=== PATIENT | female | born 1965 | race American Indian/Alaskan Native ===

== ENCOUNTER 2018-02-08 10:27 | Day surgery (SDC) | payer OTHER ==
[2018-02-08] MEDS ORDERED: NACL 0.9% 1000 ML 1,000 ML IV SCH (12:00)
[2018-02-08] MEDS ORDERED: DIPRIVAN 10 MG/ML IV ONE ×2 (14:09)
--- NOTE | 2018-02-08 14:12 | Anesthesia Consultation ---
Anesthesia Consult and Med Hx Date of service: 02/08/18 - Airway Anesthetic Teeth Evaluation: Good ROM Head & Neck: Adequate Mental/Hyoid Distance: Adequate Mallampati Class: Class II Intubation Access Assessment: Probably Good - Pulmonary Exam CTA: Yes - Cardiac Exam Cardiac Exam: RRR - Pre-Operative Health Status ASA Pre-Surgery Classification: ASA3 Proposed Anesthetic Plan: MAC - Pulmonary Hx Smoking: Yes Hx Asthma: Yes (OCCASIONALLY USES AN INHALER) Hx Sleep Apnea: No - Cardiovascular System Hx Hypertension: No Hx Heart Attack/AMI: No Hx Heart Murmur: No - Central Nervous System Hx Psychiatric Problems: No - Endocrine Hx Renal Disease: No - Hematic Hx Sickle Cell Disease: No - Other Systems Hx Alcohol Use: No Hx Substance Use: No Hx Cancer: No
--- NOTE | 2018-02-08 14:12 | Anesthesia Day of Surgery ---
Anesthesia Day of Surgery - Day of Surgery Patient Examined: Yes Patient H&P Reviewed: Yes Patient is NPO: Yes
--- NOTE | 2018-02-08 15:12 | Operative Report ---
Operative Report Operative Report: Date of procedure: 02/08/2018 Procedure: Colonoscopy with Multiple Hot Biopsy Polypectomies. Attending physician: Sanchez Thakkar MD Office Machine Servicer: Sanchez Thakkar MD Indication: Patient is a 52-year-old female who presents for screening colonoscopy. This colonoscopy serves to evaluate patient so that treatment may be directed based on the findings. Consent: Informed consent was obtained after advising the patient and family regarding nature of this procedure, its indications, potential benefits as well as possible complications including but not limited to bleeding perforation and adverse reaction to medication, infection as well as other cardiopulmonary complications. An informed written and verbal consent was then obtained after due opportunity was provided for questions and answers. Monitoring: Patient was monitored continuously with pulse oximetry and electrocardiographic recordings as well as blood pressure recordings. Vital signs remained stable throughout this procedure with no untoward events. Preoperative assessment: Patient was assessed immediately prior to this procedure for capacity to tolerate monitored anesthesia care and moderate sedation as well as general anesthesia. Patient's ASA classification is 2, Mallampati class is 2, Hyomental distance is 3. Instrument: T[employer]ent[employer] video colonoscope Medications: Propofol given intravenously in divided doses. For details please refer to anesthesia records. Description of procedure: Patient was placed in the left lateral decubitus position after achieving sedation, a digital rectal examination was performed following which the colonoscope was introduced into the anal verge and advanced to the cecum which was identified by the cecal valve, the appendiceal orifice, as well as by the cecal strap and direct transillumination. The colonoscope was subsequently withdrawn with careful inspection of all mucosal surfaces. Patient tolerated this procedure well and was subsequently taken to the recovery room. The following findings were noted. Findings: Patient had multiple diminutive diverticula in the sigmoid and descending. There was a sessile 4 mm polyp in the proximal descending colon which was removed by hot biopsy polypectomy. There was areas of retained stool with thick liquid stool and semisolid stool seen in the ascending colon and in the descending colon. Those were diminutive polyps seen in the rectum which was removed by hot biopsy polypectomy. On the retroflex view at the anal verge , patient had internal hemorrhoids. Patient also had hypertrophied anal papilla. Impression: Diminutive descending colon polyp and rectal polyp status post hot biopsy polypectomy. Retained stool. Diverticula disease of the colon. Internal hemorrhoids. Plan: Follow pathology report. High-fiber diet. Repeat colonoscopy in 5 years.
--- NOTE | 2018-02-08 15:12 | Discharge Summary ---
Short Stay Discharge Plan Activity: advance as tolerated Weight Bearing Status: Weight Bear as Tolerated Diet: regular Follow up with: MADHAVI SALVADOR MD [Primary Care Provider] - 7 Days
[2018-02-08 15:33] VITALS: BP 132/74
== END 2018-02-08 10:28 | disposition home or self-care (01) ==
LOC: GIO 10:27
PROVIDERS: ATTEND Internal Medicine Gastroenterology
DX: Z12.11 Encounter for screening for malignant neoplasm of colon (principal); K62.1 Rectal polyp; K63.5 Polyp of colon; K57.30 Diverticulosis of large intestine without perforation or abscess without bleeding; K64.8 Other hemorrhoids; F17.200 Nicotine dependence, unspecified, uncomplicated; J45.909 Unspecified asthma, uncomplicated; Z91.040 Latex allergy status; Z98.890 Other specified postprocedural states; Z88.0 Allergy status to penicillin
CPT/HCPCS: 45384; 88305; J2704; J7030